=== PATIENT | female | born 1955 | race Caucasian/White ===

== ENCOUNTER → 2016-05-24 | Outpatient (CLI) | payer OTHER | LOC: MMPC 10:00 | PROVIDERS: ATTEND Specialist | DX: D35.01 Benign neoplasm of right adrenal gland (principal) | CPT/HCPCS: 99212; G0463 ==

== ENCOUNTER → 2016-06-21 | Outpatient (CLI) | payer OTHER ==
[2016-06-21 08:45] LABS: HEMOGLOBIN A1C 6.17 % (4.2-6.0); MEAN BLOOD GLUCOSE (CALC) 119.461 mg/dL
[2016-06-25 09:10] LABS: ALDOSTERONE 30 ng/dL (<=21); METANEPHRINE FREE 0.24 nmol/L (<0.50)
== END ==
LOC: LAB 07:49
PROVIDERS: ATTEND Student in an Organized Health Care Education/Training Program
DX: E11.9 Type 2 diabetes mellitus without complications (principal); D35.01 Benign neoplasm of right adrenal gland
CPT/HCPCS: 36415; 82024; 82088; 82533; 82627; 83036; 83835; 84244

== ENCOUNTER → 2016-06-22 | Outpatient (CLI) | payer OTHER | LOC: MMPC 09:00 | PROVIDERS: ATTEND Family Medicine | DX: F32.9 Major depressive disorder, single episode, unspecified (principal); E78.5 Hyperlipidemia, unspecified; M79.2 Neuralgia and neuritis, unspecified | CPT/HCPCS: 99213 ==

== ENCOUNTER → 2016-06-23 | Outpatient (CLI) | payer OTHER | LOC: LAB 07:34 | PROVIDERS: ATTEND Student in an Organized Health Care Education/Training Program | DX: D35.01 Benign neoplasm of right adrenal gland (principal) | CPT/HCPCS: 36415; 82533 ==

== ENCOUNTER → 2016-07-01 | Outpatient (CLI) | payer OTHER | LOC: MMPC 09:00 | PROVIDERS: ATTEND Family Medicine | DX: I10 Essential (primary) hypertension (principal); F41.1 Generalized anxiety disorder | CPT/HCPCS: 99212; G0463 ==

== ENCOUNTER → 2016-07-06 | Outpatient (CLI) | payer OTHER | LOC: MMPC 09:00 | PROVIDERS: ATTEND Family Medicine | DX: I10 Essential (primary) hypertension (principal); E11.9 Type 2 diabetes mellitus without complications | CPT/HCPCS: 99213; G0463 ==

== ENCOUNTER → 2016-08-18 | Outpatient (CLI) | payer OTHER | LOC: MMPC 09:00 | PROVIDERS: ATTEND Family Medicine | DX: I10 Essential (primary) hypertension (principal); E11.9 Type 2 diabetes mellitus without complications; F41.1 Generalized anxiety disorder | CPT/HCPCS: 99214; G0463 ==

== ENCOUNTER → 2016-09-26 | Outpatient (CLI) | payer OTHER | LOC: MMPC 09:00 | PROVIDERS: ATTEND Family Medicine | DX: I10 Essential (primary) hypertension (principal) | CPT/HCPCS: 99213; G0463 ==

== ENCOUNTER → 2016-10-17 | Outpatient (CLI) | payer OTHER | LOC: MMPC 09:00 | PROVIDERS: ATTEND Family Medicine | DX: H02.841 Edema of right upper eyelid (principal); H02.842 Edema of right lower eyelid | CPT/HCPCS: 99213; G0463 ==

== ENCOUNTER → 2016-10-27 | Outpatient (CLI) | payer OTHER ==
--- NOTE | 2016-10-27 16:49 | EKG ---
[address] [place] [address] Measurements Intervals [place] Rate: 69 P: 55 VT: 166 QRS: 116 QRSD: 106 T: 82 QT: 418 QTc: 437 Interpretive Statements SINUS RHYTHM WITH FREQUENT VENTRICULAR PREMATURE COMPLEXES INCOMPLETE RIGHT BUNDLE BRANCH BLOCK POSSIBLE RIGHT VENTRICULAR HYPERTROPHY Compared to ECG 02/25/2016 13:28:43 Ventricular premature complex(es) now present Incomplete right bundle-branch block now present Sinus bradycardia no longer present Electronically Signed On 10-28-16 10:27:26 MDT by Thomas Mckeon [email or web address]
== END ==
LOC: MOB EKG 16:39
PROVIDERS: ATTEND Family Medicine
DX: R00.1 Bradycardia, unspecified (principal); E11.9 Type 2 diabetes mellitus without complications; D35.01 Benign neoplasm of right adrenal gland; I10 Essential (primary) hypertension; E78.5 Hyperlipidemia, unspecified; F41.1 Generalized anxiety disorder; I45.10 Unspecified right bundle-branch block; F17.200 Nicotine dependence, unspecified, uncomplicated
CPT/HCPCS: 93005; 93010; 99213; G0463

== ENCOUNTER 2016-11-10 01:20 | Emergency (ER) | payer OTHER ==
[2016-11-10] MEDS ORDERED: ONDANSETRON 4 MG/2 ML VIAL IVP ONE (01:41)
[2016-11-10] MEDS ORDERED: NORMAL SALINE 10 ML SYRINGE FLUSH IVP PRN (01:41)
[2016-11-10] MEDS ORDERED: Sodium Chloride 0.9% 1,000 ML PRIMARY IV ONE (01:41)
--- NOTE | 2016-11-10 01:49 | PDOC ---
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 She completed that hospitalization was discharged and feeling okay. [facility] that [facility] was just not feeling quite right she is also feeling like she had some urinary retention and was having to do some straining to get all of her urine out and was just feeling poorly at times so decided to come in for evaluation. Since her surgery she's been requiring 2 L of oxygen her current oxygen requirement is basically same. She is actually feeling a bit better if she sits here in the emergency department and states that she still doesn't feel well but that she is feeling better than she was and she decided to come to the ER. When asked what symptoms she currently has she's not really sure because her breathing is better than it was when she decided to come in and her overall malaise has been about the same since her surgery. She is specifically denying fever or chills or increased abdominal pain or chest pain or increased work of breathing. She does have a little bit of nausea though she has not vomited. She denies any substantial bowel symptoms. She has had the difficulty finishing her stream and feels like she is retaining urine at times but is using oxycodone every 6 hours or so as well. Have you received a tetanus shot in the past 10 years?: Unknown - Patient Home Medications Home Medications: Home Medications Aspirin 81 mg ORAL HS tab 01/26/12 Cyanocobalamin [Vitamin B-12] 1,000 mcg SL DAILY 01/26/12 Magnesium 500 mg PO HS 01/26/12 Multivitamins-Min/FA/Ginkgo [One Daily For Women 50+ Adv Tb] 0.5 each PO BID 26/04 Blood Sugar Diagnostic [Onetouch Verio] 1 each MC QD #1 box 11/12/14 Lancets [Onetouch Lancets] 1 each MC QD #1 box 11/12/14 Gabapentin 2 cap PO TID #180 cap 11/25/15 Metformin HCl 500 mg PO DAILY #30 tab 12/28/15 Simvastatin 5 mg PO DAILY #30 tab 12/28/15 Flaxseed Oil/[place] 3,6,9 [Sv Flaxseed Oil 1,300 Mg Sftgl] 1 each PO TID cap Cyclobenzaprine HCl 10 mg PO TID #90 tab 08/19/16 Biotin 1 mg PO QD tab 09/05/16 Cholecalciferol (Vitamin D3) [Vitamin D-400] 1 tab PO QD tab 09/05/16 Chromium Amino Acid Chelate [Chromium] 400 mcg PO tab 09/05/16 Ascorbic Acid [Vitamin C] 500 mg PO BID tab 09/26/16 Nicotine 7mg Patch [Nicoderm Cq 7mg Patch] 7 mg TRANSDERM DAILY #30 patch Albuterol/Ipratrop Neb Soln [Duoneb Neb Soln] 1 each INH QID PRN #1 box Oxycodone HCl 1 - 2 tab PO Q6H PRN tab 11/09/16 - Patient Allergies Allergies/Adverse Reactions: Allergies Allergy/AdvReac Type Severity Reaction Status Date / Time Calcium Channel Blocking Allergy Severe flushing Unverified 07/01/16 11:13 Agent Dilt effect very extreme Metronidazole HCl Allergy Severe Inflamed Unverified 07/01/16 11:13 [From Flagyl] joints alprazolam [From Xanax] Allergy Intermediate Unverified 07/01/16 11:13 levofloxacin [From Levaquin] AdvReac Intermediate severe Unverified 07/01/16 11: 13 muscle cramps Antidepressants Allergy Severe exagerate Uncoded 07/03/13 15:51 her issues, multiple side effects Past Medical History - heen HEENT History: Denies History Cardiovascular History: Hypertension Respiratory History: Denies History Gastrointestinal History: Denies History Endocrine History: Denies History Musculoskeletal History: Denies History Neurological History: Denies History Blood Disorders: Denies History Psychiatric History: Depression History of Sexually Transmitted Diseases: No Cancer History: Denies History History of Other Communicable Diseases: No Alcohol Use: None Substance Use Type: None Past Medical History Reviewed: Reviewed - No Changes ROS - Limitations ROS Limitations: No Limitations Constitution: DENIES: Chills, Fever Cardiovascular: DENIES: Chest Pain Respiratory: DENIES: Cough Non Productive, Cough Productive Gastrointestinal: REPORTS: Nausea. DENIES: Abdominal Pain ENT: REPORTS: Denies Symptoms General Adult Exam - General Appearance General Appearance: POSITIVE: Alert, Cooperative - HEENT HEENT: POSITIVE: Head Inspection Nml, Eyes Inspection Nml - Neck Neck: POSITIVE: Normal Inspection - Respiratory Respiratory: POSITIVE: No Respiratory Distress, Breath Sounds Normal - Cardiovascular Cardiovascular: POSITIVE: Frequent Extrasystoles - Abdomen Abdomen: Soft: (All Quadrants) Additional Abdominal Details: Some abdominal tenderness which is what I would consider typical for postoperative state. Wounds appear to be healing well. - Extremities Extremity: Non-Tender: (All Extremities), Normal ROM: (All Extremities), Normal Inspection: (All Extremities) - Neurological / Psychological Neurological: POSITIVE: Affect Apporpriate General Adult Progress - Results Reviewed by me Xrays/CTs/US Reviewed by me: Yes Lab Results Reviewed: Yes Lab Results:: Laboratory Results 11/10/16 11/10/16 Range/Units 01:28 02:44 WBC 11.02 H (4.8-10.8) 10^3/uL RBC 5.00 (4.20-5.40) 10^6/uL Hgb 14.0 (12.0-16.0) g/dL Hct 41.6 (37.0-47.0) % MCV 83.2 (81-99) FL MCH 28.0 (27-31) PG MCHC 33.7 (33-37) g/dL RDW Std Deviation 41.0 (39-50) fL RDW Coeff of Kimber[place] 13.7 (11.5-14.5) % Plt Count 257 (140-350) 10*3/uL MPV 10.4 (7.4-12.2) FL Immature Gran % (Auto) 0.1 (0-5) % Neut % (Auto) 70.7 (50-80) % Lymph % (Auto) 14.5 (10-50) % [place] % (Auto) 10.3 (5-15) % Eos % (Auto) 3.8 (0-8) % Baso % (Auto) 0.6 (0-1) % Immature Gran # (Auto) 0.01 10*3/UL Neut # (Auto) 7.78 10*3/UL Lymph # (Auto) 1.60 10*3/uL [place] # (Auto) 1.14 H (0.3-0.8) 10*3/UL Eos # (Auto) 0.42 10*3/UL Baso # (Auto) 0.07 10*3/UL WBC Morphology Comment Normal morphology (NORM) Plt Morphology Comment Normal morphology (NORM) RBC Morph Comment Normal morphology (NORM) Sodium 139 (135-145) meq/L Potassium 4.1 (3.8-5.2) meq/L Chloride 99 (98-112) meq/L Carbon Dioxide 24 (23-33) meq/L Anion Gap 16 (5-20) BUN 6 L (7-22) mg/dL Creatinine 0.8 (0.50-1.20) mg/dL Estimated GFR > 60 (>60 ml/min/1.73m(2)) BUN/Creatinine Ratio 7.50 (6-20) Glucose 123 H (78-110) mg/dL Calculated Osmolality 286.0 (267-292) mOsm/kg Lactic Acid 1.3 (0.70-2.10) MMOL/L Calcium 9.4 (8.7-10.7) mg/dL Total Bilirubin 0.9 (0.3-1.2) mg/dL AST 17 (8-39) IU/L ALT 41 (9-52) IU/L Alkaline Phosphatase 69 (38-126) IU/L Total Protein 6.8 (6.1-8.0) g/dL Albumin 3.9 (3.5-4.8) g/dL Globulin 2.9 (2.50-4.10) g/dL Albumin/Globulin Ratio 1.30 (1.3-2.0) mg/g Ur Collection Type Clean catch urine Urine Color Yellow Urine Clarity Clear (CLEAR) Urine pH 6.5 (5.0-8.5) Ur Specific [place] 1.003 (1.005-1.030) Urine Protein Negative (NEG) mg/dl Urine Glucose (UA) Negative (NEG) mg/dL Urine Ketones 15 (NEG) Urine Occult Blood Negative (NEG) Urine Nitrate Negative (NEG) Urine Bilirubin Negative (NEG) Urine Urobilinogen 0.2 (0.2) EU/dL Ur Leukocyte Esterase Negative (NEG) Ur Culture Indicated? Culture not set EKG Interpretation:: POSITIVE: Other (Frequent to be, this EKG is similar to previous EKG is checked a while back) - Patient's Progress MDM / ED Course: Patient seems to be doing okay. We did some baseline labs which showed a minimal elevation in white blood cell count 11 and nothing to explain why the white blood cell count was elevated. She has normal appearing urine chest x- ray appears okay though not a great study. She does have some residual urine after she urinates but urine looks completely clearly is no infection at all. Otherwise she seems to be doing well on her 2 L of oxygen she is resting more comfortably and at this point think we'll go ahead and let her go home for follow-up closely as an outpatient with her primary care provider. Patient Care Time - Estimated PCT Patient Care Time (In Minutes): 40 Vital Signs - VS Reviewed Vital Signs Reviewed: Yes (all benign with my exam) Discharge Clinical Impression: Malaise Discharge Disposition: Discharged to Home Condition: Good Additional Instructions: Monitor symptoms closely follow-up with her primary care provider today or tomorrow to discuss her symptoms and make sure you're doing better Follow-up back here in the emergency department with any sort of increase in symptoms or anything of concern. Follow Up With: CARROLL MELENDEZ [Primary Care Provider] -
[2016-11-10 01:58] LABS: BASOPHILS # (AUTO) 0.07 10*3/UL; BASOPHILS % (AUTO) 0.6 % (0-1); EOSINOPHILS # (AUTO) 0.42 10*3/UL; EOSINOPHILS % (AUTO) 3.8 % (0-8); HEMATOCRIT 41.6 % (37.0-47.0); MEAN CORPUSCULAR HGB CONC 33.7 g/dL (33-37); MEAN CORPUSCULAR VOLUME 83.2 FL (81-99); MEAN PLATELET VOLUME 10.4 FL (7.4-12.2); MONOCYTES # (AUTO) 1.14 10*3/UL (0.3-0.8); MONOCYTES % (AUTO) 10.3 % (5-15); NEUTROPHILS # (AUTO) 7.78 10*3/UL; NEUTROPHILS % (AUTO) 70.7 % (50-80)
[2016-11-10 02:00] LABS: PLATELET MORPHOLOGY COMMENT NORMAL MORPHOLOGY (NORM); RBC MORPHOLOGY COMMENT NORMAL MORPHOLOGY (NORM); WBC MORPHOLOGY COMMENT NORMAL MORPHOLOGY (NORM)
[2016-11-10 02:11] LABS: BLOOD UREA NITROGEN 6 mg/dL (7-22); CALCIUM 9.4 mg/dL (8.7-10.7); EST GLOMERULAR FILTRATION > 60 (>60 ml/min/1.73m(2)); SERUM ALBUMIN 3.9 g/dL (3.5-4.8)
[2016-11-10 02:54] LABS: BILIRUBIN,URINE NEGATIVE (NEG); CLARITY,URINE CLEAR (CLEAR); COLOR,URINE YELLOW; GLUCOSE, URINE (UA) NEGATIVE (NEG); NITRATE,URINE NEGATIVE (NEG); OCCULT BLOOD,URINE NEGATIVE (NEG); PH,URINE 6.5 (5.0-8.5); PROTEIN,URINE NEGATIVE (NEG); UROBILINOGEN,URINE 0.2 EU/dL (0.2)
[2016-11-10 02:56] LABS: URINE SAMPLE TYPE CLEAN CATCH URINE
[2016-11-10 03:18] VITALS: TEMP 98.2
--- NOTE | 2016-11-10 03:34 | EKG ---
[address] [place] [address] [place] [address] Measurements Intervals [place] Rate: 69 P: 71 TN: 157 QRS: 92 QRSD: 116 T: 66 QT: 394 QTc: 413 Interpretive Statements SINUS RHYTHM WITH FREQUENT VENTRICULAR PREMATURE COMPLEXES BORDERLINE RIGHT AXIS DEVIATION ABNORMAL RHYTHM ECG Compared to ECG 10/27/2016 16:47:20 Incomplete right bundle-branch block no longer present Electronically Signed On 11-10-16 17:06:43 MDT by Thomas Mckeon [id number]
[2016-11-10 04:36] VITALS: RESP 22
--- NOTE | 2016-11-10 08:23 | DI ---
XR CXR 2VW PA/LAT,11/10/2016 1:43 AM: Clinical History: Shortness of breath Previous Exam: September 16, 2015 Findings: PA and lateral views of the chest are obtained, and demonstrate stable cardiomegaly. The lungs are cl ear. There is stable dextroscoliosis and tortuosity of the descending thoracic aorta. Impression: No significant change from prior.
== END 2016-11-10 04:15 | disposition home or self-care (01) ==
LOC: ER 01:20
DX: R53.81 Other malaise (principal); R11.0 Nausea; R30.0 Dysuria; R06.02 Shortness of breath; I10 Essential (primary) hypertension; Z98.890 Other specified postprocedural states
CPT/HCPCS: 71020; 80053; 81003; 83605; 85025; 93005; 93010; 96361; 96374; 99284; J2405; J7030

== ENCOUNTER → 2016-11-11 | Outpatient (CLI) | payer OTHER | LOC: MMPC 09:00 | PROVIDERS: ATTEND Family Medicine | DX: I10 Essential (primary) hypertension (principal); F32.0 Major depressive disorder, single episode, mild; Z71.6 Tobacco abuse counseling | CPT/HCPCS: 99213; G0463 ==

== ENCOUNTER 2016-11-15 20:51 | Emergency (ER) | payer OTHER ==
[2016-11-15 21:01] VITALS: RESP 18; TEMP 97
--- NOTE | 2016-11-15 22:02 | PDOC ---
General Adult HPI - General Chief Complaint: General Medical Stated Complaint: Elevated Blood Pressure Date Seen by Provider: 11/15/16 Time Seen by Provider: 21:59 - History of Present Illness Initial Comment: Patient is a very nice 61-year-old woman who just recently is recovering from a surgery status post a pheochromocytoma removal. She's had somewhat labile blood pressures since then she has been using ibuprofen on on and is noticing that when she uses ibuprofen her blood pressures tend to be a little higher. Otherwise she's not symptomatic from this at all. Getting blood pressures in the 190s over 100s today. Have you received a tetanus shot in the past 10 years?: Unknown - Patient Home Medications Home Medications: Home Medications Aspirin 81 mg ORAL HS tab 01/26/12 Cyanocobalamin [Vitamin B-12] 1,000 mcg SL DAILY 01/26/12 Magnesium 500 mg PO HS 01/26/12 Multivitamins-Min/FA/Ginkgo [One Daily For Women 50+ Adv Tb] 0.5 each PO BID 26/04 Blood Sugar Diagnostic [Onetouch Verio] 1 each MC QD #1 box 11/12/14 Lancets [Onetouch Lancets] 1 each MC QD #1 box 11/12/14 Gabapentin 2 cap PO TID #180 cap 11/25/15 Metformin HCl 500 mg PO DAILY #30 tab 12/28/15 Simvastatin 5 mg PO DAILY #30 tab 12/28/15 Flaxseed Oil/[place] 3,6,9 [Sv Flaxseed Oil 1,300 Mg Sftgl] 1 each PO TID cap Cyclobenzaprine HCl 10 mg PO TID #90 tab 08/19/16 Biotin 1 mg PO QD tab 09/05/16 Cholecalciferol (Vitamin D3) [Vitamin D-400] 1 tab PO QD tab 09/05/16 Chromium Amino Acid Chelate [Chromium] 400 mcg PO PRN tab 09/05/16 Ascorbic Acid [Vitamin C] 500 mg PO BID tab 09/26/16 Nicotine 7mg Patch [Nicoderm Cq 7mg Patch] 7 mg TRANSDERM DAILY #30 patch Albuterol/Ipratrop Neb Soln [Duoneb Neb Soln] 1 each INH QID PRN #1 box Oxycodone HCl 1 - 2 tab PO Q6H PRN tab 11/09/16 - Patient Allergies Allergies/Adverse Reactions: Allergies Allergy/AdvReac Type Severity Reaction Status Date / Time Calcium Channel Blocking Allergy Severe flushing Verified 11/15/16 20:56 Agent Dilt effect very extreme Metronidazole HCl Allergy Severe Inflamed Verified 11/15/16 20:56 [From Flagyl] joints alprazolam [From Xanax] Allergy Intermediate ITCHING Verified 11/15/16 20:56 levofloxacin [From Levaquin] AdvReac Intermediate severe Verified 11/15/16 20:56 muscle cramps Antidepressants Allergy Severe exagerate Uncoded 11/10/16 03:19 her issues, multiple side effects Past Medical History - heen HEENT History: Denies History Cardiovascular History: Hypertension Respiratory History: Home Oxygen Use Gastrointestinal History: Denies History Genitourinary History: Denies History Endocrine History: Denies History Additional Endocrine History: PRE DIABETIC Musculoskeletal History: Denies History Neurological History: Denies History Blood Disorders: Denies History Psychiatric History: Depression History of Sexually Transmitted Diseases: No Female Reproductive History: Denies History Obstetrical History: Denies History Cancer History: Denies History In Past Year Been Physically Harmed or Verbally Threatened: No History of MDRO: No History of Other Communicable Diseases: No Tobacco Use: Current Every Day Smoker Alcohol Use: None Substance Use Type: None Previous Surgical History: Yes Type / Date of Surgery: RIGHT ADRENALECTOMY Anesthesia Reactions: No Malignant Hyperthermia: No Significant Family History: No pertinent family hx Past Medical History Reviewed: Reviewed - No Changes ROS - Limitations ROS Limitations: No Limitations Constitution: REPORTS: Denies Symptoms Cardiovascular: REPORTS: Denies Cardiac Symptoms Respiratory: REPORTS: Denies Resp Symptoms Neurological: REPORTS: Denies Neuro Symptoms General Adult Exam - General Appearance General Appearance: POSITIVE: Alert, Cooperative, No Acute Distress - HEENT HEENT: POSITIVE: Head Inspection Nml, Eyes Inspection Nml - Respiratory Respiratory: POSITIVE: No Respiratory Distress, Breath Sounds Normal - Cardiovascular Cardiovascular: POSITIVE: Regular Rate & Rhythm, No Murmur - Abdomen Abdomen: Soft: (All Quadrants), Normal Bowel Sounds: (All Quadrants), Denies Tenderness: (All Quadrants) General Adult Progress - Patient's Progress MDM / ED Course: I long discussion with the patient about parameters for concern in regards to her blood pressure as well as frequency of monitoring and symptoms of high and low blood pressure. We are going to have her start back on Diovan on a regular basis. She has Diovan 160 mg at home this should be a good dose to start at once daily in the morning. Were also can have her take her 50 mg hydralazine that she has at home on a when necessary basis if her systolic gets greater than 180 or her diastolic greater than 110 she is also to follow-up with her primary care provider tomorrow for reevaluation and for further medication management Patient Care Time - Estimated PCT Patient Care Time (In Minutes): 35 Vital Signs - Recent Vital Signs Vital Signs: Vital Signs (Last 8 hours) Temp Pulse Resp BP Pulse Ox 11/15/16 20:56 97.0 F 75 18 192/115 95 - VS Reviewed Vital Signs Reviewed: Yes Discharge Clinical Impression: Hypertension Qualifiers: Hypertension type: other secondary hypertension Qualifier Code: (I15.8) Other secondary hypertension Discharge Disposition: Discharged to Home Condition: Stable Patient Instructions Given at Discharge: Hypertension (ED) Additional Instructions: Monitor your blood pressures 2-3 times daily. If your blood pressures are greater than 200/110 or lower than 100/50 call the emergency department or your primary care provider's office for further instructions Start Diovan 160 mg daily tonight when he get home and then continue to take it every morning beginning with tomorrow morning If you are having symptoms associated with high blood pressure such as headache confusion blurry vision weakness or any other concerning symptoms do not hesitate to come back to the emergency department for evaluation If you have any symptoms associated with low blood pressures such as weakness dizziness passing out or any other concerning symptoms do not hesitate to be evaluated in the emergency department You may use one of your 50 mg hydralazine tablets every 4 hours as needed if your systolic blood pressure raises greater than 180 or your diastolic greater than 110 Follow-up with your primary care provider tomorrow for evaluation of your blood pressures in to discuss medication management Follow Up With: NONE,NONE [Primary Care Provider] -
== END 2016-11-15 22:05 | disposition home or self-care (01) ==
LOC: ER 20:51
DX: I10 Essential (primary) hypertension (principal); Z98.890 Other specified postprocedural states
CPT/HCPCS: 99282

== ENCOUNTER → 2016-11-16 | Outpatient (CLI) | payer OTHER | LOC: MMPC 09:00 | PROVIDERS: ATTEND Family Medicine | DX: I10 Essential (primary) hypertension (principal); M79.2 Neuralgia and neuritis, unspecified; Z71.6 Tobacco abuse counseling | CPT/HCPCS: 99213; G0463 ==

== ENCOUNTER → 2016-11-29 | Outpatient (CLI) | payer OTHER ==
[2016-11-29 15:26] LABS: BUN/CREATININE RATIO 15.38 (6-20); CALCIUM 9.4 mg/dL (8.7-10.7)
== END ==
LOC: LAB 15:03
PROVIDERS: ATTEND Family Medicine
DX: I10 Essential (primary) hypertension (principal); F17.200 Nicotine dependence, unspecified, uncomplicated
CPT/HCPCS: 36415; 80048

== ENCOUNTER → 2016-11-30 | Outpatient (CLI) | payer OTHER | LOC: MMPC 09:00 | PROVIDERS: ATTEND Family Medicine | DX: E11.9 Type 2 diabetes mellitus without complications (principal); I10 Essential (primary) hypertension; F32.9 Major depressive disorder, single episode, unspecified; D35.01 Benign neoplasm of right adrenal gland | CPT/HCPCS: 99213; G0463 ==

== ENCOUNTER → 2016-12-08 | Outpatient (CLI) | payer OTHER | LOC: MMPC 09:00 | PROVIDERS: ATTEND Family Medicine | DX: E11.9 Type 2 diabetes mellitus without complications (principal); I10 Essential (primary) hypertension; F32.0 Major depressive disorder, single episode, mild | CPT/HCPCS: 99214; G0463 ==